=== PATIENT | male | born 1955 | race Caucasian/White ===

== ENCOUNTER → 2017-06-26 | Outpatient (CLI) | payer BC ==
--- NOTE | 2017-06-26 09:11 | CT ---
EXAMINATION TYPE: CT abdomen pelvis w con DATE OF EXAM: 06/26/2017 COMPARISON: 03/27/2016 HISTORY: LLQ mass, swelling CT DLP: 1505 mGycm Automated exposure control for dose reduction was used. TECHNIQUE: Helical acquisition of images was performed from the lung bases through the pelvis. CONTRAST: Performed with Oral Contrast and with IV Contrast, patient injected with 100 mL of Omnipaque 300. FINDINGS: LUNG BASES: Minimal bibasilar subsegmental dependent atelectasis is present. LIVER/GB: Numerous hepatic cysts are scattered throughout the hepatic parenchyma with the largest in the left hepatic lobe measuring 1.5 cm. Some of these are subcentimeter and too small to accurately c haracterize but also likely represent hepatic cysts. No intrahepatic biliary ductal dilatation is pre sent.. Gallbladder surgically absent with cholecystectomy clips in the gallbladder fossa. PANCREAS: Unremarkable in morphology without ductal dilatation. SPLEEN: Not enlarged with multiple small splenules seen at the anterior-inferior margin of the still[place]amish spleen. ADRENALS: Maintain the adreniform shape without discrete measurable nodule. KIDNEYS: Enhance and excrete symmetrically without hydronephrosis or mass. FREE AIR: No free air is visualized. ADENOPATHY: None visualized REPRODUCTIVE ORGANS: Visualization is obscured by spray artifact from bilateral hip prostheses. URINARY BLADDER: Visualization is partially obscured by spray artifact from hip prostheses. OSSEOUS STRUCTURES: Bilateral hip prostheses create extensive spray artifact and partially obscure v isualization of the pelvis. Multilevel degenerative changes of the thoracolumbar and lumbosacral spin e are present. There is slight retrolisthesis of L5 on S1. BOWEL: There is bowel wall thickening of the sigmoid colon and engorgement of the vasa recta with th e antimesenteric border of the colon approaching and abdominal wall defects of a Spigelian hernia wit h a neck measuring 4 cm. No discrete pericolonic fat stranding is seen. Small fat filled umbilical he rnia is also present measuring 1.2 cm. IMPRESSION: 1. LEFT SPIGELIAN HERNIA WITH AN ABDOMINAL WALL DEFECT OF APPROXIMATELY 4CM AND ABUTTING ANTIMESENTER MICHAEL BOARDER OF THE SIGMOID COLON. 2. DIFFUSE COLONIC BOWEL WALL THICKENING AND NUMEROUS SIGMOID DIVERTICULA WELL VASA RECTA ENGOR GEMENT THAT COULD RELATE TO EARLY/RESOLVING DIVERTICULITIS. COLONOSCOPY IS ALSO RECOMMENDED IF NOT RE CENTLY PERFORMED GIVEN THE DIFFUSE COLONIC WALL THICKENING ALTHOUGH THIS COULD BE SEQUELA OF CHRONIC DIVERTICULITIS. 3. NUMEROUS HEPATIC CYSTS AND LESIONS THAT ARE TOO SMALL TO ACCURATELY CHARACTERIZE BUT MAY ALSO REPR ESENT HEPATIC CYSTS.
== END | disposition home or self-care (01) ==
LOC: RADCTMAIN 06:42
PROVIDERS: ATTEND Surgery
DX: K57.30 Diverticulosis of large intestine without perforation or abscess without bleeding (principal); K46.9 Unspecified abdominal hernia without obstruction or gangrene; K76.89 Other specified diseases of liver
CPT/HCPCS: 74177; Q9967

== ENCOUNTER 2017-08-01 07:49 | Day surgery (SDC) | payer BC ==
[2017-07-31 09:31] VITALS: BMI 32.8
[~2017-08-01 07:49] MED LIST: LACTATED RINGERS 1,000 ML IV SCH
[2017-08-01 08:26] VITALS: RESP 16
[2017-08-01] MEDS ORDERED: GLUCAGON 1 MG/ML VIAL ONE (09:10)
[2017-08-01] MEDS ORDERED: PROPOFOL 10 MG/ML 20 ML VIAL IV ONE (09:10)
[2017-08-01] MEDS ORDERED: LIDOCAINE 1% INJ 10MG/ML (20 ML MDV) ONE (09:10)
--- NOTE | 2017-08-01 09:47 | P.DS ---
Providers Attending physician: Phyllis Waters Primary care physician: Natasha Alvarez Plan - Discharge Summary New Discharge Prescriptions: No Action Chlorthalidone [Hygroton] 25 mg PO DAILY Bisoprolol-Hctz 10-6.25 mg [Ziac 10-6.25] 1 each PO DAILY Discharge Medication List Bisoprolol-Hctz 10-6.25 mg [Ziac 10-6.25] 1 each PO DAILY 03/27/16 [History] Chlorthalidone [Hygroton] 25 mg PO DAILY 03/27/16 [History] Activity/Diet/Wound Care/Special Instructions: Diverticular diet Discharge Disposition: HOME SELF-CARE
--- NOTE | 2017-08-01 09:47 | P.OP ---
Date of Procedure: 08/01/17 Preoperative Diagnosis: Prior cecal polyp, diverticuli Postoperative Diagnosis: same, polyp at 35 cm removed with snare polypectomy and retrieved, internal hemorrhoids, spastic bowel Procedure(s) Performed: Colonoscopy Anesthesia: MAC Surgeon: Phyllis Waters Estimated Blood Loss (ml): 0 IV fluids (ml): 550 Pathology: other (Polyp at 35 cm removed with snare polypectomy and retrieved) Condition: stable Disposition: PACU Indications for Procedure: Prior cecal polyp Operative Findings: Spastic bowel, diverticuli, polyp at 35 cm removed with snare polypectomy and retrieved, internal hemorrhoids Description of Procedure: Patient is a 62-year-old white male status post prior colonoscopy with removal of an adenomatous cecal polyp. Patient presents for repeat colonoscopy. Patient came to the endoscopy suite and was placed in the left lateral decubitus position. Rectal examination was performed. Patient was noted to have adequate sphincter tone no masses. Colonoscope was passed through the anus into the rectum. Was passed through the sigmoid colon up to the splenic flexure. The bowel was somewhat spastic and the patient was given glucagon during this portion of the procedure. The scope was advanced through the transverse colon right colon to the area of the cecum. Circumdential observation mucosa did not reveal any lesions of concern in the cecum or right colon. No lesions of concern in the transverse colon. As the scope was brought down to the left and sigmoid colon extensive diverticuli were identified. At 35 cm a polyp was identified which was removed with snare polypectomy and retrieved. The scope continued to be brought down the lesions of concern otherwise noted scope was brought to the rectum where it was retroflexed internal hemorrhoids identified. Proximally 6 minutes were taken to withdraw the scope from the cecum to the rectum. Impression/plan: 1. Extensive diverticuli 2. Spastic bowel 3. Polyp at 35 cm removed with snare polypectomy and retrieved please note no polyp was noted in the cecum 4. Internal hemorrhoids Plan: 1. Conservative management of diverticuli and hemorrhoids 2. Await results of polypectomy most likely repeat scope in 3 years
[2017-08-01 10:04] VITALS: BP 124/77; PULSE 67
== END 2017-08-01 10:23 | disposition home or self-care (01) ==
LOC: ORWHC2ENDO 07:49
PROVIDERS: ATTEND Surgery
DX: Z12.11 Encounter for screening for malignant neoplasm of colon (principal); D12.5 Benign neoplasm of sigmoid colon; K58.9 Irritable bowel syndrome, unspecified; K57.30 Diverticulosis of large intestine without perforation or abscess without bleeding; K64.8 Other hemorrhoids; Z86.010 Personal history of colon polyps; K46.9 Unspecified abdominal hernia without obstruction or gangrene; I25.2 Old myocardial infarction; Z79.899 Other long term (current) drug therapy
CPT/HCPCS: 45385; 88305

== ENCOUNTER → 2017-09-22 | Outpatient (CLI) | payer BC ==
--- NOTE | 2017-09-22 09:35 | CT ---
EXAMINATION TYPE: CT abdomen pelvis w con DATE OF EXAM: 09/22/2017 COMPARISON: Prior CT abdomen pelvis 06/26/2017 HISTORY: Diverticulitis CT DLP: 1472.8 mGycm Automated exposure control for dose reduction was used. TECHNIQUE: Helical acquisition of images from the lung bases through the pelvis have been completed. CONTRAST: Performed with Oral Contrast and with IV Contrast, patient injected with 100 mL of Omnipaque 300. FINDINGS: Artifact due to patient's hip prosthetics limits evaluation of the pelvis LUNG BASES: No significant abnormality is appreciated. AORTA: No significant abnormality is appreciated. LIVER/GB: Cystic foci again noted within the liver as on prior exam, gallbladder is absent. PANCREAS: No significant abnormality is seen. SPLEEN: No significant abnormality is seen. ADRENALS: No significant abnormality is seen. KIDNEYS: No significant abnormality is seen. REPRODUCTIVE ORGANS: No significant abnormality is seen BOWEL: Extensive diverticular changes again noted in the sigmoid colon, no evident bowel obstruction . The appendix is somewhat dilated and shows some luminal contrast centrally, there is no inflammator y change, the size is similar to prior exam FREE AIR: No Free Air visible. ASCITES: None visible. PELVIC ADENOPATHY: None visualized. RETROPERITONEAL ADENOPATHY: No Retroperitoneal Adenopathy visible. URINARY BLADDER: No significant abnormality is seen. OSSEOUS STRUCTURES: No significant abnormality is seen. Some increased attenuation present in the subcutaneous fat over the previously identified hernia like ly due to postop change. IMPRESSION: INTERVAL SURGERY. DIVERTICULOSIS. SOME LIMITATIONS DESCRIBED.
== END | disposition home or self-care (01) ==
LOC: RADCTMAIN 07:41
PROVIDERS: ATTEND Surgery
DX: K57.30 Diverticulosis of large intestine without perforation or abscess without bleeding (principal); Z98.890 Other specified postprocedural states
CPT/HCPCS: 74177; Q9967

== ENCOUNTER 2018-10-22 08:22 | Emergency (ER) | payer BC ==
[2018-10-22 08:31] VITALS: RESP 18
--- NOTE | 2018-10-22 09:11 | ED ---
Fall HPI - General Chief Complaint: Fall Stated Complaint: fall, rt leg injury Time Seen by Provider: 10/22/18 08:36 Source: patient, RN notes reviewed, old records reviewed Mode of arrival: wheelchair - History of Present Illness Initial Comments: Patient is a 63-year-old male presents emergency with left posterior thigh pain and pelvis pain after slip and fall on the ice last night. Patient reports that he landed onto his buttocks and back. He had no loss conscious. He denies headache. He states that he has had no saddle anesthesias. Patient ports and had bilateral hip surgeries. Patient states that he had a right hip replacement. Patient presents had ambulate with a cane. He denies any peripheral paresthesias distally. Denies any pain while sitting in bed. Pain is worse with hip extension. - Related Data Home Medications Medication Instructions Recorded Confirmed Bisoprolol-Hctz 10-6.25 mg [Ziac 1 tab PO QAM 03/27/16 10/22/18 10-6.25] Chlorthalidone [Hygroton] 25 mg PO DAILY 03/27/16 10/22/18 Previous Rx's Medication Instructions Recorded Cyclobenzaprine [Flexeril] 10 mg PO TID #10 tab 10/22/18 Ibuprofen 600 mg PO TID #20 tablet 10/22/18 Allergies Allergy/AdvReac Type Severity Reaction Status Date / Time No Known Allergies Allergy Verified 10/22/18 08:43 Review of Systems ROS Statement: Those systems with pertinent positive or pertinent negative responses have been documented in the HPI. ROS Other: All systems not noted in ROS Statement are negative. Past Medical History Past Medical History: Hypertension Additional Past Medical History / Comment(s): diverticulitis, History of Any Multi-Drug Resistant Organisms: None Reported Past Surgical History: Cholecystectomy, Hernia Repair, Orthopedic Surgery Additional Past Surgical History / Comment(s): R hip replacement, colonoscopy. L hip replacement Past Anesthesia/Blood Transfusion Reactions: No Reported Reaction Past Psychological History: No Psychological Hx Reported Smoking Status: Never smoker Past Alcohol Use History: Rare Past Drug Use History: None Reported - Past Family History Mother Family Medical History: Cancer Additional Family Medical History / Comment(s): Breast Brother(s) Family Medical History: Diabetes Mellitus General Exam - General Exam Comments Initial Comments: 63-year-old male. Alert and oriented. No significant distress. Limitations: no limitations General appearance: alert, in no apparent distress Head exam: Present: atraumatic, normocephalic, normal inspection Eye exam: Present: normal appearance ENT exam: Present: normal exam, mucous membranes moist Neck exam: Present: normal inspection. Absent: tenderness, meningismus, lymphadenopathy Respiratory exam: Present: normal lung sounds bilaterally. Absent: respiratory distress, wheezes, rales, rhonchi, stridor Cardiovascular Exam: Present: regular rate, normal rhythm, normal heart sounds. Absent: systolic murmur, diastolic murmur, rubs, gallop, clicks GI/Abdominal exam: Present: soft, normal bowel sounds. Absent: distended, tenderness, guarding, rebound, rigid Extremities exam: Present: normal inspection, full ROM, normal capillary refill , other (Tenderness palpation over the right hamstring. Tendon is intact. Full range motion of the hip noted. No deformities noted. No bruising.). Absent: tenderness, pedal edema, joint swelling, calf tenderness Back exam: Present: normal inspection Neurological exam: Present: alert, oriented X3, CN II-XII intact Psychiatric exam: Present: normal affect, normal mood Skin exam: Present: warm, dry, intact, normal color. Absent: rash Course Vital Signs 10/22/18 10/22/18 08:24 09:54 Temperature 98.4 F 98.9 F Pulse Rate 68 63 Respiratory 18 18 Rate Blood Pressure 125/76 117/80 O2 Sat by Pulse 94 L 96 Oximetry Medical Decision Making - Medical Decision Making Patient 63-year-old male presents resources today after fall. Patient slipped on ice. Patient can planes of right posterior thigh pain. At this time she he has full range of motion of the leg. He is able to bear weight and ambulate. He has pain with extension of the hip. Pelvis x-ray was completed and is intact. No changes within patient's hardware from previous orthopedic surgeries on hips. Patient's femurs negative for any acute changes as well. Patient's offered pain medication here he stated he did not want anything. I discussed this time likely a pulled hamstring muscle this time. Patient has been advised to stop inflammatory medicine warm compresses over the area. Discussed following up with orthopedic if symptoms persist. All questions answered return parameters were discussed. - Radiology Data Radiology results: report reviewed Negative pelvis exam. Negative right femur exam. Disposition Clinical Impression: Hamstring muscle strain Disposition: HOME SELF-CARE Condition: Good Instructions (If sedation given, give patient instructions): Hamstring Injury ( ED), Hamstring Exercises (ED) Additional Instructions: Advised to alternate heat and ice over the posterior thigh. Take anti- inflammatory medication such as Motrin or Tylenol for pain. Patient should follow-up with orthopedic if symptoms continue to persist after a few days. Patient should practice stretching the hamstring as well. Prescriptions: Cyclobenzaprine [Flexeril] 10 mg PO TID #10 tab Ibuprofen 600 mg PO TID #20 tablet Is patient prescribed a controlled substance at d/c from ED?: No Referrals: Trace Nicole MD [Primary Care Provider] - 1-2 days Bird Weston DO [Doctor of Osteopathic Medicine] - 1-2 days Time of Disposition: 10:23
--- NOTE | 2018-10-22 09:41 | XR ---
EXAMINATION TYPE: XR pelvis AP view DATE OF EXAM: 10/22/2018 CLINICAL HISTORY: pain TECHNIQUE: Single view the pelvis is submitted. FINDINGS: No evidence for fracture, dislocation or bony lesion. Bilateral hip prostheses noted. No e vidence for loosening at this time. SI joints appear symmetric. IMPRESSION: 1. No acute fracture or dislocation seen. ICD 10 NO FRACTURE, INITIAL EVALUATION
--- NOTE | 2018-10-22 09:46 | XR ---
EXAMINATION TYPE: XR femur RT DATE OF EXAM: 10/22/2018 CLINICAL HISTORY: pain TECHNIQUE: Two views of the right femur are obtained. COMPARISON: None. FINDINGS: There is no acute fracture or dislocation seen of the femur. Right femoral acetabular prosthesis. Th e overlying soft tissue appears unremarkable. IMPRESSION: There is no acute fracture or dislocation seen of the femur. ICD 10 NO FRACTURE, INITIAL EVALUATION
[2018-10-22 09:55] VITALS: BP 117/80; PULSE 63; TEMP 98.9
== END 2018-10-22 10:31 | disposition home or self-care (01) ==
LOC: EC 08:22
DX: S76.311A Strain of muscle, fascia and tendon of the posterior muscle group at thigh level, right thigh, initial encounter (principal); I10 Essential (primary) hypertension; Z79.899 Other long term (current) drug therapy; Z96.643 Presence of artificial hip joint, bilateral; W00.0XXA Fall on same level due to ice and snow, initial encounter; Y93.01 Activity, walking, marching and hiking; Y92.096 Garden or yard of other non-institutional residence as the place of occurrence of the external cause
CPT/HCPCS: 72170; 99284

== ENCOUNTER 2019-09-13 07:30 | Day surgery (SDC) | payer BC, MEDICARE ==
[2019-09-09 12:10] VITALS: BMI 30.7
--- NOTE | 2019-09-12 21:53 | P.GSHP ---
History of Present Illness H&P Date: 09/13/19 CHIEF COMPLAINT: Colon screen HISTORY OF PRESENT ILLNESS: The patient is a 64-year-old male who presents for colon screen. Lower endoscopy was offered for further evaluation and management. PAST MEDICAL HISTORY: Please see list. PAST SURGICAL HISTORY: Please see list. MEDICATIONS: Please see list. ALLERGIES: Please see list. SOCIAL HISTORY: No illicit drug use FAMILY HISTORY: No reports of Crohn disease or ulcerative colitis. REVIEW OF ORGAN SYSTEMS: CONSTITUTIONAL: No reports of fevers or chills. PHYSICAL EXAM: VITAL SIGNS: Stable GENERAL: Well-developed pleasant in no acute distress. HEENT: No scleral icterus. Extraocular movements grossly intact. Moist buccal mucosa. NECK: Supple without lymphadenopathy. CHEST: Unlabored respirations. Equal bilateral excursions. CARDIOVASCULAR: Regular rate and rhythm. Distal 2+ pulses. ABDOMEN: Soft, nontender, nondistended. MUSCULOSKELETAL: No clubbing, cyanosis, or edema. ASSESSMENT: 1. Colon screen. PLAN: 1. Recommend proceeding with a lower endoscopy Past Medical History Past Medical History: Hypertension Additional Past Medical History / Comment(s): diverticulitis, hernia History of Any Multi-Drug Resistant Organisms: None Reported Past Surgical History: Cholecystectomy, Hernia Repair, Orthopedic Surgery Additional Past Surgical History / Comment(s): olimpia hip replacement, colonoscopy. Past Anesthesia/Blood Transfusion Reactions: No Reported Reaction Smoking Status: Never smoker - Past Family History Mother Family Medical History: Cancer Additional Family Medical History / Comment(s): Breast Brother(s) Family Medical History: Diabetes Mellitus Medications and Allergies Home Medications Medication Instructions Recorded Confirmed Type Bisoprolol-Hctz 10-6.25 mg [Ziac 1 tab PO QAM 03/27/16 09/09/19 History 10-6.25] Chlorthalidone [Hygroton] 25 mg PO DAILY 03/27/16 09/09/19 History Allergies Allergy/AdvReac Type Severity Reaction Status Date / Time No Known Allergies Allergy Verified 10/22/18 08:43
[~2019-09-13 07:30] MED LIST changes: +LIDOCAINE 1% 20 ML VIAL (10MG/ML) FOR IV START INTRADERMA PRN
[2019-09-13] MEDS ORDERED: LACTATED RINGERS 1,000 ML IV ONE (07:45)
[2019-09-13 08:01] VITALS: TEMP 98.6
[2019-09-13] MEDS ORDERED: PROPOFOL 10 MG/ML 20 ML VIAL IV ONE (08:24)
--- NOTE | 2019-09-13 09:17 | P.PCN ---
Date of Procedure: 09/13/19 Description of Procedure: PREOPERATIVE DIAGNOSIS: Personal history of colon polyps Family history malignant colon polyps Colonoscopy screening POSTOPERATIVE DIAGNOSIS: Personal history of colon polyps Family history malignant colon polyps Colonoscopy screening Tubular adenoma hepatic flexure Tubular adenoma transverse colon Sigmoid diverticulosis Internal hemorrhoids, grade 2 OPERATION: Colonoscopy to the ileocecal valve and appendiceal orifice. Colonoscopy with multiple hot snare polypectomies Colonoscopy with cold forceps biopsies SURGEON: Kristen Arias MD. ANESTHESIA: MAC. INDICATIONS: The patient is an 64-year-old male who presents family history of malignant colon polyps and personal history of colon polyps. Last colonoscopy 5 years. Benefits and risks were described and informed consent was obtained. DESCRIPTION OF PROCEDURE: The patient had undergone Suprep. He had been brought into the operating room and laid in the left lateral decubitus position. After adequate intravenous sedation, the rectum was examined with 2% lidocaine jelly. The prostate was unremarkable. External hemorrhoids were encountered. The rectal tone was within normal limits. No lesions were palpated in the rectal vault. An Olympus colonoscope was advanced until the ileocecal valve and appendiceal orifice were clearly viewed. The prep was fair. Sigmoid diverticulosis was encountered. Multiple colonic polyps were found and snare polypectomy. No evidence of focal colitis was found. Retroflexion of the scope demonstrated grade 2 internal hemorrhoids without active bleeding or inflammation. The colon was desufflated. The patient had tolerated the procedure well. Withdrawal time was over 6 minutes. FINDINGS: Aronchick preparation quality scale 2 (1-5) Internal hemorrhoids, grade 2 External hemorrhoids, grade 2. No arteriovenous malformations. Sigmoid diverticulosis Removal of 4 polyps from the proximal, mid transverse colon and descending colon: - Snare polypectomy hepatic flexure, 8 mm tubulovillous adenoma polyp. - Cold forceps biopsy at distal transverse colon, 4 mm polyp. - Cold forceps biopsy at mid transverse colon, 5 mm polyp. - Cold forceps biopsy at proximal transverse colon, 4 mm polyp. No focal colitis. RECOMMENDATIONS: Given severity of tubular adenomas, recommend repeat colonoscopy 2 years, 2019. Plan - Discharge Summary Discharge Rx Participant: No New Discharge Prescriptions: No Action Chlorthalidone [Hygroton] 25 mg PO DAILY Bisoprolol-Hctz 10-6.25 mg [Ziac 10-6.25] 1 tab PO QAM Discharge Medication List Bisoprolol-Hctz 10-6.25 mg [Ziac 10-6.25] 1 tab PO QAM 03/27/16 [History] Chlorthalidone [Hygroton] 25 mg PO DAILY 03/27/16 [History] Follow up Appointment(s)/Referral(s): Kristen Arias MD [STAFF PHYSICIAN] - As Needed Patient Instructions/Handouts: Colorectal Polyps (DC), Diverticulosis (DC), Diverticulosis Diet (GEN) Activity/Diet/Wound Care/Special Instructions: Repeat colonoscopy in 2 years, 2021 Discharge Disposition: HOME SELF-CARE
[2019-09-13 09:29] VITALS: BP 126/90; PULSE 66; RESP 18
== END 2019-09-13 09:46 | disposition home or self-care (01) ==
LOC: ORWHC2ENDO 07:30
PROVIDERS: ATTEND Surgery Plastic and Reconstructive Surgery
DX: Z12.11 Encounter for screening for malignant neoplasm of colon (principal); D12.3 Benign neoplasm of transverse colon; K63.5 Polyp of colon; K57.30 Diverticulosis of large intestine without perforation or abscess without bleeding; K64.1 Second degree hemorrhoids; K64.4 Residual hemorrhoidal skin tags; Z86.010 Personal history of colon polyps; Z83.71 Family history of colonic polyps; I10 Essential (primary) hypertension; E66.9 Obesity, unspecified; Z87.19 Personal history of other diseases of the digestive system; Z90.49 Acquired absence of other specified parts of digestive tract; Z96.643 Presence of artificial hip joint, bilateral; Z79.899 Other long term (current) drug therapy; Z68.30 Body mass index [BMI] 30.0-30.9, adult; Z80.3 Family history of malignant neoplasm of breast; Z83.3 Family history of diabetes mellitus
CPT/HCPCS: 88305; 45380; 45385; J2704

== ENCOUNTER 2019-10-17 06:02 | Day surgery (SDC) | payer MEDICARE, BC ==
[2019-10-15 13:31] VITALS: BMI 30.7
[~2019-10-17 06:02] MED LIST changes: +DEXAMETHASONE SOD PHOSPHATE 10 MG/ML 1 ML VIAL IV ONE; +HEPARIN SODIUM,PORCINE 5,000 UNIT/ML 1 ML VIAL SQ ONE; +HYDROmorphone 0.5 MG/0.5 ML SYRINGE IVP PRN; +ONDANSETRON 4 MG/2 ML VIAL IVP ONE; +SCOPOLAMINE 1.5MG/72HR PATCH TRANSDERM ONE
[2019-10-17] MEDS ORDERED: MIDAZOLAM 2 MG/2 ML VIAL IV ONE (07:07)
[2019-10-17] MEDS ORDERED: GABAPENTIN 300 MG CAP PO STA (07:07)
[2019-10-17] MEDS ORDERED: TAMSULOSIN 0.4 MG CAP.ER.24H PO STA (07:07)
[2019-10-17] MEDS ORDERED: ACETAMINOPHEN TAB 500 MG TAB PO STA (07:07)
--- NOTE | 2019-10-17 07:07 | P.GSHP ---
History of Present Illness H&P Date: 10/17/19 CHIEF COMPLAINT: Ventral hernia HISTORY OF PRESENT ILLNESS: The patient is a 64-year-old male who presents with a history of swelling and pain along the abdomen from a hernia. Now he presents for surgical intervention. PAST MEDICAL HISTORY: Please see list. PAST SURGICAL HISTORY: Please see list. MEDICATIONS: Please see list. ALLERGIES: Please see list. SOCIAL HISTORY: No illicit drug use FAMILY HISTORY: No reports of Crohn disease or ulcerative colitis. REVIEW OF ORGAN SYSTEMS: CONSTITUTIONAL: No reports of fevers or chills. No reports of weight loss despite prior attempts. GI: Denies any blood in stools or constipation. PHYSICAL EXAM: VITAL SIGNS: Stable GENERAL: Well-developed pleasant male in no acute distress. HEENT: No scleral icterus. Extraocular movements grossly intact. Moist buccal mucosa. NECK: Supple without lymphadenopathy. CHEST: Unlabored respirations. Equal bilateral excursions. CARDIOVASCULAR: Regular rate and rhythm. Distal 2+ pulses. ABDOMEN: Soft, nondistended. Palpable defect of the abdomen. No peritoneal signs. MUSCULOSKELETAL: No clubbing, cyanosis, or edema. ASSESSMENT: 1. Ventral hernia PLAN: 1. Recommend proceeding with robotic ventral hernia repair with mesh. 2. Benefits and risks of surgical intervention was discussed including possibility of open technique. 3. DVT prophylaxis. 4. Antibiotic prophylaxis. Past Medical History Past Medical History: Hypertension Additional Past Medical History / Comment(s): diverticulitis, History of Any Multi-Drug Resistant Organisms: None Reported Past Surgical History: Cholecystectomy, Hernia Repair, Orthopedic Surgery Additional Past Surgical History / Comment(s): R hip replacement, colonoscopy. L hip replacement Past Anesthesia/Blood Transfusion Reactions: No Reported Reaction Smoking Status: Never smoker - Past Family History Mother Family Medical History: Cancer Additional Family Medical History / Comment(s): Breast Brother(s) Family Medical History: Diabetes Mellitus Medications and Allergies Home Medications Medication Instructions Recorded Confirmed Type Bisoprolol-Hctz 10-6.25 mg [Ziac 1 tab PO QAM 03/27/16 10/15/19 History 10-6.25] Chlorthalidone [Hygroton] 25 mg PO DAILY 03/27/16 10/15/19 History Potassium Chloride ER [K-Dur 10] 10 meq PO DAILY 10/15/19 10/15/19 History Allergies Allergy/AdvReac Type Severity Reaction Status Date / Time No Known Allergies Allergy Verified 10/17/19 06:27 Surgical - Exam Vital Signs Temp Pulse Resp BP Pulse Ox 97 F L 62 16 131/83 97 10/17/19 06:24 10/17/19 06:24 10/17/19 06:24 10/17/19 06:24 10/17/19 06:24
[2019-10-17] MEDS ORDERED: fentaNYL (PF) 50 MCG/ML 2 ML AMP IV ONE (07:08)
[2019-10-17] MEDS ORDERED: LIDOCAINE 1% INJ 10MG/ML (20 ML MDV) ONE (07:24)
[2019-10-17] MEDS ORDERED: SUCCINYLCHOLINE CHLORIDE 100 MG/5 ML SYR IV ONE (07:24)
[2019-10-17] MEDS ORDERED: DEXAMETHASONE SOD PHOSPHATE 4 MG/ML 1 ML VIAL ONE (07:24)
[2019-10-17] MEDS ORDERED: GLYCOPYRROLATE 0.2 MG/ML 2 ML VIAL ONE (07:24)
[2019-10-17] MEDS ORDERED: PROPOFOL 10 MG/ML 20 ML VIAL IV ONE (07:24)
[2019-10-17] MEDS ORDERED: NEOSTIGMINE 1 MG/ML 10 ML VIAL ONE (07:24)
[2019-10-17] MEDS ORDERED: diphenhydrAMINE 50 MG/ML 1 ML VIAL ONE (07:24)
[2019-10-17] MEDS ORDERED: ROPIVACAINE 5 MG/ML 30 ML VIAL ONE (07:24)
[2019-10-17] MEDS ORDERED: fentaNYL (PF) 50 MCG/ML 2 ML AMP ONE (07:24)
[2019-10-17] MEDS ORDERED: ROCURONIUM BROMIDE 10 MG/ML 10 ML VIAL IV ONE (07:24)
--- NOTE | 2019-10-17 07:26 | P.ANPRN ---
Procedure Note - Anesthesia - Nerve Block Performed Bilateral Rectus Abdominis Single Time Out Performed: Yes Date of Procedure: 10/17/19 Procedure Start Time: :07 Procedure Stop Time: 07:15 Location of Patient: PreOp Indication: Acute Post-Operative Pain, Requested by Surgeon Specifically requested for management of pain by DrKong: Kristen Arias Sedation Type: Sedate with meaningful contact maintained Preparation: Sterile Prep Position: Supine Needle Types: Pajunk Needle Gauge: 21 Ultrasound used to visualize needle placement: Yes Ultrasound used to observe medication spread: Yes Injectate: 0.5% Ropivacaine (see comment for volume) Blood Aspirated: No Pain Paresthesia on Injection Noted: No Resistance on Injection: Normal Image Stored and Saved: Yes Events: Uneventful and Well Tolerated (0.5% ropivicaine 30cc dexamethsone 4mg)
[2019-10-17] MEDS ORDERED: BUPIVACAINE (PF) 0.25% 30 ML VIAL SQ ONE (07:55)
[2019-10-17] MEDS ORDERED: LACTATED RINGERS 1,000 ML IV ONE (08:10)
[2019-10-17 08:58] VITALS: TEMP 96.8
[2019-10-17 09:00] VITALS: RESP 16
[2019-10-17] MEDS ORDERED: diphenhydrAMINE 50 MG/ML 1 ML VIAL IVP ONE (10:00)
[2019-10-17] MEDS ORDERED: DEXAMETHASONE SOD PHOSPHATE 10 MG/ML 1 ML VIAL IV ONE (10:00)
--- NOTE | 2019-10-17 10:02 | P.OP ---
Date of Procedure: 10/17/19 Description of Procedure: SURGEON: KRISTEN ARIAS MD PREOPERATIVE DIAGNOSES: 1. Initial incisional hernia, epigastrium 2. Personal history of multiple abdominal wall hernias 3. Hypertensive heart disease 4. Obesity due to excess calories, BMI 31.0 POSTOPERATIVE DIAGNOSES: 1. Initial incisional hernia, epigastrium 2. Personal history of multiple abdominal wall hernias 3. Hypertensive heart disease 4. Obesity due to excess calories, BMI 31.0 OPERATION: 1. Robotic-assisted da Carlos Xi laparoscopic repair of initial incarcerated epigastric ventral hernia with mesh, ventralight ST mesh 11.4 cm Anesthesia: GETA, regional, local Estimated Blood Loss (ml): 5 Pathology: None COMPLICATIONS: None. Operative Findings: 1. Upper midline epigastric ventral hernia defect 2 x 3 cm 2. Left lower quadrant subgaleal hernia 3. Fascia repaired using #1 V-lock suture INDICATIONS: The patient is a 64-year-old male who presents with a personal history of multiple abdominal wall hernias. Surgical intervention with laparoscopic versus robotic and open techniques were reviewed. Placement of mesh was also reviewed. Benefits and risks were thoroughly described. Informed consent was obtained. DESCRIPTION OF PROCEDURE: The patient was brought into the operating room and laid in supine position. After general induction, the abdomen had been prepped and draped in standard sterile fashion. Ioban draping was also placed. Prior to incision, a timeout protocol was confirmed with surgical team regarding the patient's name including procedures to be performed. The robot was primed prior to the procedure. A field block using local anesthetic was placed along hernia site including the proposed port sites. Initial incision was made with an #11 blade along the left upper quadrant. A 0 degree 5 mm laparoscopic trocar entry was performed and insufflated. Three 8 mm ports were placed along the right lateral abdominal wall under direct localization after exchanging the 5-mm for an 8 mm port. Placements of the ports were 15 cm from the target anatomy and 10 cm apart. An accessory 12 mm port was placed at the left upper quadrant for exchange of mesh including sutures. The [employer] robot was previously primed, prepped and draped then docked from the right side of the patient onto the left side of the patient. I then sat at the robot Nixlei Xi console where working arms of the robot including Bovie cautery connected to robotic scissors, needle hydraulic lift driver, and graspers placed by the assistant director of financial aid. Incarcerated omental contents were found along the upper midline defect. The defects were reduced at the upper midline defect. Two distinct fascial defects were found: Upper midline defect 2 x 3 cm and left lower abdominal wall hernia defect 2 x 3 cm, previously repaired. The incarcerated contents were reduced as the peritoneal fat was cleaned from the abdominal wall. Next, hemostasis was checked with cautery. The epigastric hernia defect was oversewn using #1 nonabsorbable V-lock suture with fascial imbrication x 2. Next, ventralight ST mesh 11.4 cm was placed with the rough side towards the abdominal wall. 2-0 VLOC 9 inch sutures were used to fixate the mesh. A final endoscopic imaging was obtained. All instruments and pneumoperitoneum were evacuated from the abdominal cavity. The da Carlos Xi robot was undocked from the patient. I re-scrubbed into the case for closure of incisions. The fascia of the 12-mm port was probed and less than 8-mm in size. The incisions were reapproximated using 4-0 Monocryl in an interrupted subcuticular fashion. Liquid glue was applied to the skin after cleansing the skin with normal saline and dilute hydrogen peroxide. An abdominal binder was placed. An umbilical dressing was placed prior. At the end of the procedure, needle, sponge, and instrument count had been verified correct by surgical scrub technician. The patient was taken to the postanesthesia care unit in stable condition. Plan - Discharge Summary Discharge Rx Participant: No New Discharge Prescriptions: New Ibuprofen 800 mg PO Q8HR PRN #30 tablet PRN Reason: Pain Acetaminophen Tab [Tylenol Tab] 1,000 mg PO Q6HR PRN #30 tablet PRN Reason: Pain Tamsulosin [Flomax] 0.4 mg PO DAILY #5 cap.er.24h Continue Chlorthalidone [Hygroton] 25 mg PO DAILY Bisoprolol-Hctz 10-6.25 mg [Ziac 10-6.25 MG] 1 tab PO QAM Potassium Chloride ER [K-Dur 10] 10 meq PO DAILY Discharge Medication List Bisoprolol-Hctz 10-6.25 mg [Ziac 10-6.25 MG] 1 tab PO QAM 03/27/16 [History] Chlorthalidone [Hygroton] 25 mg PO DAILY 03/27/16 [History] Potassium Chloride ER [K-Dur 10] 10 meq PO DAILY 10/15/19 [History] Acetaminophen Tab [Tylenol Tab] 1,000 mg PO Q6HR PRN #30 tablet 10/17/19 [Rx] Ibuprofen 800 mg PO Q8HR PRN #30 tablet 10/17/19 [Rx] Tamsulosin [Flomax] 0.4 mg PO DAILY #5 cap.er.24h 10/17/19 [Rx] Follow up Appointment(s)/Referral(s): Kristen Arias MD [STAFF PHYSICIAN] - 10/22/19 (YOU WILL NEED TO CALL TO SCHEDULE YOUR APPOINTMENT) Patient Instructions/Handouts: *Surgery [facility] - (Anesthesia) Discharge Instructions Outpatient Surgery, Abdominal Binder (ED), Ventral Hernia Repair (GEN) Activity/Diet/Wound Care/Special Instructions: Wear abdominal binder at all times No lifting over 4 pounds in 4 weeks until Nov 14. January shower. No bath tub soaks for two weeks until Oct 31. Diet as tolerated. No driving while on narcotics. Use Tylenol and ibuprofen scheduled for the next 24-48 hours for best pain relief. Use ice along incisions for the today to prevent swelling. Discharge Disposition: HOME SELF-CARE
[2019-10-17 10:29] VITALS: BP 124/75; PULSE 69
== END 2019-10-17 11:11 | disposition home or self-care (01) ==
LOC: OR 06:02
PROVIDERS: ATTEND Surgery Plastic and Reconstructive Surgery
DX: K43.0 Incisional hernia with obstruction, without gangrene (principal); I11.9 Hypertensive heart disease without heart failure; E66.09 Other obesity due to excess calories; E78.5 Hyperlipidemia, unspecified; Z68.31 Body mass index [BMI] 31.0-31.9, adult; Z98.890 Other specified postprocedural states; Z79.899 Other long term (current) drug therapy; Z90.49 Acquired absence of other specified parts of digestive tract; Z87.19 Personal history of other diseases of the digestive system; Z96.643 Presence of artificial hip joint, bilateral; Z80.3 Family history of malignant neoplasm of breast; Z83.3 Family history of diabetes mellitus
CPT/HCPCS: 64488; 49655; C1781; J2250; J1200; J1644; J1100 ×2; J2710; J0690; J2405; J2001; J3010; J2795; J0330; J2704

== ENCOUNTER 2021-12-01 08:50 | Day surgery (SDC) | payer MEDICARE, BC ==
[2021-11-29 11:14] VITALS: BMI 30.7
[~2021-12-01 08:50] MED LIST changes: -DEXAMETHASONE SOD PHOSPHATE 10 MG/ML 1 ML VIAL IV ONE; -HEPARIN SODIUM,PORCINE 5,000 UNIT/ML 1 ML VIAL SQ ONE; -HYDROmorphone 0.5 MG/0.5 ML SYRINGE IVP PRN; -LACTATED RINGERS 1,000 ML IV SCH; +LIDOCAINE 1% (10MG/ML) FOR IV START INTRADERMA PRN; -LIDOCAINE 1% 20 ML VIAL (10MG/ML) FOR IV START INTRADERMA PRN; -ONDANSETRON 4 MG/2 ML VIAL IVP ONE; -SCOPOLAMINE 1.5MG/72HR PATCH TRANSDERM ONE
--- NOTE | 2021-12-01 09:06 | P.GSHP ---
History of Present Illness H&P Date: 12/01/21 CHIEF COMPLAINT: Colon screen HISTORY OF PRESENT ILLNESS: The patient is a 66-year-old male who presents for colon screen. Lower endoscopy was offered for further evaluation and management. PAST MEDICAL HISTORY: Please see list. PAST SURGICAL HISTORY: Please see list. MEDICATIONS: Please see list. ALLERGIES: Please see list. SOCIAL HISTORY: No illicit drug use FAMILY HISTORY: No reports of Crohn disease or ulcerative colitis. REVIEW OF ORGAN SYSTEMS: CONSTITUTIONAL: No reports of fevers or chills. PHYSICAL EXAM: VITAL SIGNS: Stable GENERAL: Well-developed pleasant in no acute distress. HEENT: No scleral icterus. Extraocular movements grossly intact. Moist buccal mucosa. NECK: Supple without lymphadenopathy. CHEST: Unlabored respirations. Equal bilateral excursions. CARDIOVASCULAR: Regular rate and rhythm. Distal 2+ pulses. ABDOMEN: Soft, nontender, nondistended. MUSCULOSKELETAL: No clubbing, cyanosis, or edema. ASSESSMENT: 1. Colon screen. PLAN: 1. Recommend proceeding with a lower endoscopy Past Medical History Past Medical History: Hypertension, Prostate Disorder Additional Past Medical History / Comment(s): diverticulitis, History of Any Multi-Drug Resistant Organisms: None Reported Past Surgical History: Cholecystectomy, Hernia Repair Additional Past Surgical History / Comment(s): BILAT RAMYA, COLONOSCOPY, HERNIA X 2 Past Anesthesia/Blood Transfusion Reactions: No Reported Reaction Smoking Status: Never smoker - Past Family History Mother Family Medical History: Cancer Additional Family Medical History / Comment(s): Breast Brother(s) Family Medical History: Diabetes Mellitus Medications and Allergies Home Medications Medication Instructions Recorded Confirmed Type Bisoprolol-Hctz 10-6.25 mg [Ziac 1 tab PO QAM 03/27/16 11/29/21 History 10-6.25 MG] Chlorthalidone [Hygroton] 25 mg PO DAILY 03/27/16 11/29/21 History Potassium Chloride ER [K-Dur 10] 10 meq PO BID 10/15/19 11/29/21 History Acetaminophen Tab [Tylenol Tab] 1,000 mg PO Q6HR PRN #30 tablet 10/17/19 11/29/21 Rx Ibuprofen 800 mg PO Q8HR PRN #30 tablet 10/17/19 11/29/21 Rx Multivit-Min/FA/Lycopen/Lutein 1 each PO DAILY 11/29/21 11/29/21 History [Centrum Silver Men Tablet] Tamsulosin [Flomax] 0.2 mg PO DAILY 11/29/21 11/29/21 History Allergies Allergy/AdvReac Type Severity Reaction Status Date / Time No Known Allergies Allergy Verified 11/29/21 11:01
[2021-12-01] MEDS: LACTATED RINGERS 1,000 ML IV SCH ×2 (09:30→10:12)
[2021-12-01] MEDS ORDERED: PROPOFOL 10 MG/ML 20 ML VIAL IV ONE (10:13)
[2021-12-01] MEDS ORDERED: LIDOCAINE 1% INJ 10MG/ML (20 ML MDV) ONE (10:13)
[2021-12-01 10:19] VITALS: TEMP 98.2
[2021-12-01 11:00] VITALS: BP 108/73; PULSE 57; RESP 16
--- NOTE | 2021-12-01 11:29 | P.PCN ---
Date of Procedure: 12/01/21 Description of Procedure: PREOPERATIVE DIAGNOSIS: Personal history of colon polyps POSTOPERATIVE DIAGNOSIS: Tubular adenoma ascending colon Tubular adenoma transverse colon Sigmoid diverticulosis OPERATION: Colonoscopy to the ileocecal valve and appendiceal orifice, cecum Colonoscopy with hot snare polypectomy Colonoscopy with ablation, ascending colon SURGEON: Kristen Arias MD. ANESTHESIA: MAC. INDICATIONS: The patient is an 66-year-old male who presents personal history of colon polyps. Last colonoscopy less than 5 years. Benefits and risks were described and informed consent was obtained. DESCRIPTION OF PROCEDURE: The patient had undergone Sutab prep. The patient had been brought into the operating room and laid in the left lateral decubitus position. After adequate intravenous sedation, the rectum was examined with 2% lidocaine jelly. The prostate was unremarkable. No external hemorrhoids were encountered. The rectal tone was within normal limits. No lesions were palpated in the rectal vault. An Olympus colonoscope was advanced until the cecum, ileocecal valve and marco antnoio endiceal orifice were clearly viewed. The prep was fair. Moderate sigmoid diverticulosis was encountered. Colonic polyps were found and removed. No evidence of focal colitis was found. Retroflexion of the scope demonstrated grade 2 internal hemorrhoids without active bleeding or inflammation. The colon was desufflated. The patient had tolerated the procedure well. Withdrawal time was over 6 minutes. FINDINGS: Aronchick preparation quality scale 3 (1-5) Internal hemorrhoids, grade 1 No external hemorrhoids No arteriovenous malformations. Sigmoid diverticulosis, moderate to severe Removal of 2 polyps: - Snare polypectomy distal transverse colon, 5 mm tubulovillous adenoma polyp. - Snare polypectomy proximal transverse colon, 4 mm tubulovillous adenoma polyp. Ablation of ascending colon adenoma, 3 mm No focal colitis. RECOMMENDATIONS: Repeat colonoscopy in 3 years, 2024 Plan - Discharge Summary Discharge Rx Participant: No New Discharge Prescriptions: Continue Chlorthalidone [Hygroton] 25 mg PO DAILY Bisoprolol-Hctz 10-6.25 mg [Ziac 10-6.25 MG] 1 tab PO QAM Potassium Chloride ER [K-Dur 10] 10 meq PO BID Ibuprofen 800 mg PO Q8HR PRN #30 tablet PRN Reason: Pain Acetaminophen Tab [Tylenol] 1,000 mg PO Q6HR PRN #30 tablet PRN Reason: Pain Multivit-Min/FA/Lycopen/Lutein [Centrum Silver Men Tablet] 1 each PO DAILY Tamsulosin [Flomax] 0.2 mg PO DAILY Discharge Medication List Bisoprolol-Hctz 10-6.25 mg [Ziac 10-6.25 MG] 1 tab PO QAM 03/27/16 [History] Chlorthalidone [Hygroton] 25 mg PO DAILY 03/27/16 [History] Potassium Chloride ER [K-Dur 10] 10 meq PO BID 10/15/19 [History] Acetaminophen Tab [Tylenol] 1,000 mg PO Q6HR PRN #30 tablet 10/17/19 [Rx] Ibuprofen 800 mg PO Q8HR PRN #30 tablet 10/17/19 [Rx] Multivit-Min/FA/Lycopen/Lutein [Centrum Silver Men Tablet] 1 each PO DAILY 11/29/21 [History] Tamsulosin [Flomax] 0.2 mg PO DAILY 11/29/21 [History] Follow up Appointment(s)/Referral(s): Kristen Arias MD [STAFF PHYSICIAN] - As Needed Patient Instructions/Handouts: Diverticulosis Diet (GEN), Diverticulosis (DC), Colorectal Polyps (GEN) Activity/Diet/Wound Care/Special Instructions: Repeat colonoscopy in 3 years, 2024 Discharge Disposition: HOME SELF-CARE
== END 2021-12-01 11:30 | disposition home or self-care (01) ==
LOC: ORWHC2ENDO 08:50
PROVIDERS: ATTEND Surgery Plastic and Reconstructive Surgery
DX: Z12.11 Encounter for screening for malignant neoplasm of colon (principal); D12.3 Benign neoplasm of transverse colon; K57.30 Diverticulosis of large intestine without perforation or abscess without bleeding; K64.1 Second degree hemorrhoids; Z86.010 Personal history of colon polyps; I10 Essential (primary) hypertension; N42.9 Disorder of prostate, unspecified; Z79.899 Other long term (current) drug therapy; Z90.49 Acquired absence of other specified parts of digestive tract; Z98.890 Other specified postprocedural states; Z96.643 Presence of artificial hip joint, bilateral; Z80.3 Family history of malignant neoplasm of breast; Z83.3 Family history of diabetes mellitus
CPT/HCPCS: 88305; 45385; J2001; J2704

== ENCOUNTER 2023-02-10 12:31 | Emergency (ER) | payer MEDICARE, BC ==
[2023-02-10 12:36] VITALS: BP 139/83; PULSE 54; RESP 16; TEMP 97.6
--- NOTE | 2023-02-10 12:45 | ED ---
Dizziness HPI - General Chief Complaint: Dizziness Stated Complaint: Dizziness Time Seen by Provider: 02/10/23 12:40 Source: patient, RN notes reviewed, old records reviewed Mode of arrival: ambulatory Limitations: no limitations - History of Present Illness Initial Comments: This is a 67-year-old male to the emergency department today for evaluation will continue with the room spinning and being off balance. Patient has no history of the same. No current headache. No recent trauma. No fevers. Patient denies any neurological findings or complaints no weakness or lack of strength and inability to move any extremities. Patient does have history of high blood pressure Description: "room spinning", off-balance, difficulty walking History of Same: Yes History of Trauma: Yes Improves With: nothing Worsens With: movement Associated Symptoms: ataxia - Related Data Home Medications Medication Instructions Recorded Confirmed Bisoprolol-Hctz 10-6.25 mg [Ziac 1 tab PO QAM 03/27/16 12/01/21 10-6.25 MG] Chlorthalidone [Hygroton] 25 mg PO DAILY 03/27/16 12/01/21 Potassium Chloride ER [K-Dur 10] 10 meq PO BID 10/15/19 12/01/21 Multivit-Min/FA/Lycopen/Lutein 1 each PO DAILY 11/29/21 12/01/21 [Centrum Silver Men Tablet] Tamsulosin [Flomax] 0.2 mg PO DAILY 11/29/21 12/01/21 Previous Rx's Medication Instructions Recorded Acetaminophen Tab [Tylenol] 1,000 mg PO Q6HR PRN #30 tablet 10/17/19 Ibuprofen 800 mg PO Q8HR PRN #30 tablet 10/17/19 Meclizine [Antivert] 25 mg PO TID #15 tab 02/10/23 Allergies Allergy/AdvReac Type Severity Reaction Status Date / Time No Known Allergies Allergy Verified 02/10/23 12:36 Review of Systems ROS Statement: Those systems with pertinent positive or pertinent negative responses have been documented in the HPI. ROS Other: All systems not noted in ROS Statement are negative. Past Medical History Past Medical History: Hypertension, Prostate Disorder Additional Past Medical History / Comment(s): diverticulitis, History of Any Multi-Drug Resistant Organisms: None Reported Past Surgical History: Cholecystectomy, Hernia Repair, Orthopedic Surgery Additional Past Surgical History / Comment(s): BILAT RAMYA, COLONOSCOPY, HERNIA X 2 Past Anesthesia/Blood Transfusion Reactions: No Reported Reaction Past Psychological History: No Psychological Hx Reported Smoking Status: Never smoker Past Alcohol Use History: None Reported Past Drug Use History: None Reported - Past Family History Mother Family Medical History: Cancer Additional Family Medical History / Comment(s): Breast Brother(s) Family Medical History: Diabetes Mellitus General Exam Limitations: no limitations General appearance: alert, in no apparent distress Head exam: Present: atraumatic, normocephalic, normal inspection Eye exam: Present: normal appearance, PERRL, EOMI. Absent: scleral icterus, conjunctival injection, periorbital swelling ENT exam: Present: normal exam, mucous membranes moist Neck exam: Present: normal inspection. Absent: tenderness, meningismus, lymphadenopathy Respiratory exam: Present: normal lung sounds bilaterally. Absent: respiratory distress, wheezes, rales, rhonchi, stridor Cardiovascular Exam: Present: regular rate, normal rhythm, normal heart sounds. Absent: systolic murmur, diastolic murmur, rubs, gallop, clicks GI/Abdominal exam: Present: soft, normal bowel sounds. Absent: distended, tenderness, guarding, rebound, rigid Extremities exam: Present: normal inspection, full ROM, normal capillary refill. Absent: tenderness, pedal edema, joint swelling, calf tenderness Back exam: Present: normal inspection Neurological exam: Present: alert, oriented X3, CN II-XII intact Psychiatric exam: Present: normal affect, normal mood Skin exam: Present: warm, dry, intact, normal color. Absent: rash Course Vital Signs 02/10/23 12:34 Temperature 97.6 F Pulse Rate 54 L Respiratory 16 Rate Blood Pressure 139/83 O2 Sat by Pulse 96 Oximetry - Reevaluation(s) Reevaluation #1: 02/10/23 21:10 Medical records reviewed Reevaluation #2: 02/10/23 21:10 Patient symptoms mildly improved here in the ER Reevaluation #3: 02/10/23 21:10 Patient informed of results questions answered Reevaluation #4: 02/10/23 21:10 Was pt. sent in by a medical professional or institution? @ -no Did you speak to anyone other than the patient for history? @ -no Did you review nursing and triage notes? @ -agree Were old charts reviewed? @ -no Differential Diagnosis? @ -prior EKG interpreted by me (3pts min.)? @ -yes X-rays interpreted by me (1pt min.)? @ -yes CT interpreted by me (1pt min.)? @ -no U/S interpreted by me (1pt. min.)? @ -no What testing was considered but not performed? (CT, X-rays, U/S, labs)? Why? @ -no What meds were considered but not given? Why? @ -no Did you discuss the management of the patient with other professionals? @ -no Did you reconcile home meds? @ -no Was smoking cessation discussed for >3mins.? @ -no Was critical care preformed (if so, how long)? @ -no Were there social determinants of health that impacted care today? How? (Homelessness, low income, unemployed, alcoholism, drug addiction, transpor tation, low edu. Level, literacy, decrease access to med. care, long term, rehab)? @ -no Was there de-escalation of care discussed even if they declined? (Discuss DNR or withdrawal of care, Hospice)? @ -no What co-morbidities impacted this encounter? (DM, HTN, Smoking, COPD, CAD, Cancer, CVA, Hep., AIDS, mental health diagnosis, sleep apnea, morbid obesity)? @ -none Was patient admitted / discharged? @ -67 male to the emergency department for evaluation of severe vertigo, vertiginous symptoms from spinning lightheadedness and weakness not feeling well. Symptoms are improved here in the ER is able to ambulate can be discharged home Discharge Undiagnosed new problem with uncertain prognosis? @ -no Drug Therapy requiring intensive monitoring for toxicity (Heparin, Nitro, Insulin, Cardizem)? @ -no Were any procedures done? @ -no Diagnosis/symptom? @ -Vertigo Acute, or Chronic, or Acute on Chronic? @ -no Uncomplicated (without systemic symptoms) or Complicated (systemic symptoms)? @ -uncomplicated Side effects of treatment? @ -no Exacerbation, Progression, or Severe Exacerbation] @ -no Poses a threat to life or bodily function? @ -yes secondary to CVA with pain swelling Reevaluation #5: Differential Headache: Migraine, tension, cluster, carbon monoxide, central venous thrombosis, pension karma temporal arteritis, acute closure glaucoma, intercranial hemorrhage, mastoiditis, sinusitis, head injury, this is not meant to be an all-inclusive list. Differential Altered Mental Status: Hypoglycemia, DKA, hypercapnia, ETOH, overdose, CO poisoning, trauma, myxedema coma, HTN encephalopathy, infection, encephalitis, psychosis, intercranial hemorrhage, hepatic encephalopathy, meningitis, CVA, this is not meant to be an all-inclusive list EKG Findings - EKG Comments: EKG Findings:: EKG shows rate 55 TN 200 QRS 129 QTc 437 - EKG Results: EKG: interpreted by [facility] Medical Decision Making - Medical Decision Making 67 male to the emergency department with peripheral vertigo BPPV lately, patient feeling improved here in the ER able to ambulate without ataxia and can be discharged home - Lab Data Result diagrams: 02/10/23 12:52 02/10/23 12:52 Lab Results 02/10/23 02/10/23 02/10/23 Range/Units 12:52 12:52 12:52 WBC 5.7 (3.8-10.6) k/uL RBC 5.19 (4.30-5.90) m/uL Hgb 16.1 (13.0-17.5) gm/dL Hct 47.5 (39.0-53.0) % MCV 91.6 (80.0-100.0) fL MCH 31.0 (25.0-35.0) pg MCHC 33.9 (31.0-37.0) g/dL RDW 13.2 (11.5-15.5) % Plt Count 187 (150-450) k/uL MPV 7.5 Neutrophils % 64 % Lymphocytes % 21 % Monocytes % 7 % Eosinophils % 6 % Basophils % 1 % Neutrophils # 3.6 (1.3-7.7) k/uL Lymphocytes # 1.2 (1.0-4.8) k/uL Monocytes # 0.4 (0-1.0) k/uL Eosinophils # 0.3 (0-0.7) k/uL Basophils # 0.1 (0-0.2) k/uL PT 10.5 (9.0-12.0) sec INR 1.0 (<1.2) APTT 24.2 (22.0-30.0) sec Sodium 136 L (137-145) mmol/L Potassium 3.5 (3.5-5.1) mmol/L Chloride 99 (98-107) mmol/L Carbon Dioxide 27 (22-30) mmol/L Anion Gap 10 mmol/L BUN 21 H (9-20) mg/dL Creatinine 0.72 (0.66-1.25) mg/dL Est GFR (CKD-EPI)AfAm >90 (>60 ml/min/1.73 sqM) Est GFR (CKD-EPI)NonAf >90 (>60 ml/min/1.73 sqM) Glucose 114 H (74-99) mg/dL Calcium 9.1 (8.4-10.2) mg/dL Phosphorus 3.7 (2.5-4.5) mg/dL Magnesium 1.8 (1.6-2.3) mg/dL Total Bilirubin 1.1 (0.2-1.3) mg/dL AST 42 (17-59) U/L ALT 32 (4-49) U/L Alkaline Phosphatase 73 (38-126) U/L Troponin I (0.000-0.034) ng/mL Total Protein 6.8 (6.3-8.2) g/dL Albumin 4.0 (3.5-5.0) g/dL TSH 1.670 (0.465-4.680) mIU/L 02/10/23 Range/Units 12:52 WBC (3.8-10.6) k/uL RBC (4.30-5.90) m/uL Hgb (13.0-17.5) gm/dL Hct (39.0-53.0) % MCV (80.0-100.0) fL MCH (25.0-35.0) pg MCHC (31.0-37.0) g/dL RDW (11.5-15.5) % Plt Count (150-450) k/uL MPV Neutrophils % % Lymphocytes % % Monocytes % % Eosinophils % % Basophils % % Neutrophils # (1.3-7.7) k/uL Lymphocytes # (1.0-4.8) k/uL Monocytes # (0-1.0) k/uL Eosinophils # (0-0.7) k/uL Basophils # (0-0.2) k/uL PT (9.0-12.0) sec INR (<1.2) APTT (22.0-30.0) sec Sodium (137-145) mmol/L Potassium (3.5-5.1) mmol/L Chloride (98-107) mmol/L Carbon Dioxide (22-30) mmol/L Anion Gap mmol/L BUN (9-20) mg/dL Creatinine (0.66-1.25) mg/dL Est GFR (CKD-EPI)AfAm (>60 ml/min/1.73 sqM) Est GFR (CKD-EPI)NonAf (>60 ml/min/1.73 sqM) Glucose (74-99) mg/dL Calcium (8.4-10.2) mg/dL Phosphorus (2.5-4.5) mg/dL Magnesium (1.6-2.3) mg/dL Total Bilirubin (0.2-1.3) mg/dL AST (17-59) U/L ALT (4-49) U/L Alkaline Phosphatase (38-126) U/L Troponin I <0.012 (0.000-0.034) ng/mL Total Protein (6.3-8.2) g/dL Albumin (3.5-5.0) g/dL TSH (0.465-4.680) mIU/L - EKG Data -: EKG Interpreted by Ca - Radiology Data Radiology results: report reviewed (CT brain is negative for acute disease CTA negative chest x-rays negative for acute disease), image reviewed Disposition Clinical Impression: Vertigo, BPPV (benign paroxysmal positional vertigo) Disposition: HOME SELF-CARE Instructions (If sedation given, give patient instructions): Vertigo (ED), Dizziness (ED) Prescriptions: Meclizine [Antivert] 25 mg PO TID #15 tab Is patient prescribed a controlled substance at d/c from ED?: No Referrals: Trace Nicole MD [Primary Care Provider] - 1-2 days Time of Disposition: 14:15
--- NOTE | 2023-02-10 13:15 | XR ---
EXAMINATION TYPE: XR chest 2V DATE OF EXAM: 02/10/2023 COMPARISON: 03/27/2016 HISTORY: Shortness of breath TECHNIQUE: Frontal and lateral views of the chest are obtained. FINDINGS: Scattered senescent parenchymal changes noted. Hyperinflation compatible with COPD. No evidence for infiltrate. No evidence for atelectasis. Heart size is stable. Mediastinal structures are stable and grossly unremarkable. No evidence for hilar prominence. Degenerative changes dorsal spine. IMPRESSION: 1. No evidence for acute pulmonary disease.
[2023-02-10 13:37] LABS: Basophils # (A) 0.1 k/uL (0-0.2); Basophils % (A) 1 %; Eosinophils # (A) 0.3 k/uL (0-0.7); Eosinophils % (A) 6 %; HCT 47.5 % (39.0-53.0); HGB 16.1 gm/dL (13.0-17.5); Lymphocytes # (A) 1.2 k/uL (1.0-4.8); Lymphocytes % (A) 21 %; MCHC 33.9 g/dL (31.0-37.0); MCV 91.6 fL (80.0-100.0); Mean Platelet Volume 7.5; Monocytes # (A) 0.4 k/uL (0-1.0); Monocytes % (A) 7 %; Neutrophils # (A) 3.6 k/uL (1.3-7.7); Neutrophils % (A) 64 %; Platelet Count 187 k/uL (150-450); RBC 5.19 m/uL (4.30-5.90); RDW 13.2 % (11.5-15.5); WBC 5.7 k/uL (3.8-10.6)
[2023-02-10 13:48] LABS: ALT 32 U/L (4-49); African American GFR (CKD) >90 (>60 ml/min/1.73 sqM); Anion Gap 10 mmol/L; Blood Urea Nitrogen 21 mg/dL (9-20); Calcium 9.1 mg/dL (8.4-10.2); Carbon Dioxide 27 mmol/L (22-30); Chloride 99 mmol/L (98-107); Glucose 114 mg/dL (74-99); Non-African American GFR(CKD) >90 (>60 ml/min/1.73 sqM); Sodium 136 mmol/L (137-145); Total Bilirubin 1.1 mg/dL (0.2-1.3); Total Protein 6.8 g/dL (6.3-8.2)
[2023-02-10 13:51] LABS: Partial Thromboplastin Time 24.2 sec (22.0-30.0); Prothrombin Time 10.5 sec (9.0-12.0)
[2023-02-10 13:54] LABS: Phosphorus 3.7 mg/dL (2.5-4.5); Potassium 3.5 mmol/L (3.5-5.1)
[2023-02-10 13:55] LABS: AST 42 U/L (17-59); Alkaline Phosphatase 73 U/L (38-126); Magnesium 1.8 mg/dL (1.6-2.3)
[2023-02-10] MEDS ORDERED: ONDANSETRON 4 MG/2 ML VIAL IVP STA (13:56)
[2023-02-10] MEDS ORDERED: MECLIZINE 12.5 MG TAB PO STA (13:56)
[2023-02-10] MEDS ORDERED: diphenhydrAMINE 50 MG/ML 1 ML VIAL IVP STA (13:56)
[2023-02-10] MEDS ORDERED: ONDANSETRON 4 MG ODT STARTER PACK 2 TAB BTL PO STA (14:26)
--- NOTE | 2023-02-10 14:32 | CT ---
EXAMINATION TYPE: CT brain wo con DATE OF EXAM: 02/10/2023 COMPARISON: None HISTORY: Vertigo CT DLP: 1143 mGycm Automated exposure control for dose reduction was used. FINDINGS: Ventricular system is midline. There is no acute hemorrhage or mass effect. Mild generalized degenera tive change. Calvarium intact. Osseous structures intact. Changes of mild chronic sinusitis. Orbits are symmetric. As a focal nodula r prominence of the tip of the basilar artery measuring 5 mm. IMPRESSION: 1. NO ACUTE HEMORRHAGE OR MASS EFFECT. 2. 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 CTA [employer] [facility] [place] RECOMMENDED.
--- NOTE | 2023-02-10 15:20 | CT ---
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 Contrast CTA of the [place] was performed 3-D reconstruction imaging obtained at a separate workstation. Vertebrobasilar system as well as intracranial portions of the internal carotid arterie s and their major tributaries are patent. Mild basilar ectasia without aneurysm. I do not see evidenc e for sizable aneurysm or vascular malformation. Please note MRI provides greater sensitivity and sp ecificity. Visualized brain appears grossly unremarkable. IMPRESSION: No evidence for sizable aneurysm or vascular malformation.
== END 2023-02-10 16:19 | disposition home or self-care (01) ==
LOC: EC 12:31
DX: H81.10 Benign paroxysmal vertigo, unspecified ear (principal); I10 Essential (primary) hypertension; Z79.899 Other long term (current) drug therapy
CPT/HCPCS: 36415; 93005; 80053; 83735; 84100; 84443; 84484; 85025; 85610; 85730; 71046; 70496; 70450; 99284; 96374; 96375; J1200; J2405; S0119; Q9967

== ENCOUNTER 2025-01-12 12:26 | Emergency (ER) | payer MEDICARE, BC ==
--- NOTE | 2025-01-12 12:44 | ED ---
Fall HPI - General Chief Complaint: Fall Stated Complaint: Fell off ladder head lac no thinners Time Seen by Provider: 01/12/25 12:34 Source: patient Mode of arrival: ambulatory - History of Present Illness Initial Comments: 69-year-old male presenting with chief complaint of head injury. Patient fell off of the second step of a ladder forward hitting his head on a beam and then the ground. No loss of consciousness and no blood thinners. Patient does have a superficial laceration to the forehead. No nausea or vomiting. No other injuries. No dizziness. No vision or hearing changes. No numbness tingling or weakness. Patient denies any other complaints. Does not know when his last tetanus shot was. - Related Data Home Medications Medication Instructions Recorded Confirmed Bisoprolol-Hctz 10-6.25 mg [Ziac 1 tab PO QAM 03/27/16 12/01/21 10-6.25 MG] Chlorthalidone [Hygroton] 25 mg PO DAILY 03/27/16 12/01/21 Potassium Chloride ER [K-Dur 10] 10 meq PO BID 10/15/19 12/01/21 Mv-Min/Folic/K1/Lycopen/Lutein 1 each PO DAILY 11/29/21 12/01/21 [Centrum Silver Men Tablet] Tamsulosin [Flomax] 0.2 mg PO DAILY 11/29/21 12/01/21 Previous Rx's Medication Instructions Recorded Acetaminophen Tab [Tylenol] 1,000 mg PO Q6HR PRN #30 tablet 10/17/19 Ibuprofen 800 mg PO Q8HR PRN #30 tablet 10/17/19 Meclizine [Antivert] 25 mg PO TID #15 tab 02/10/23 Allergies Allergy/AdvReac Type Severity Reaction Status Date / Time No Known Allergies Allergy Verified 01/12/25 12:30 Review of Systems ROS Statement: Those systems with pertinent positive or pertinent negative responses have been documented in the HPI. ROS Other: All systems not noted in ROS Statement are negative. Past Medical History Past Medical History: Hypertension, Prostate Disorder Additional Past Medical History / Comment(s): diverticulitis, History of Any Multi-Drug Resistant Organisms: None Reported Past Surgical History: Cholecystectomy, Hernia Repair, Orthopedic Surgery Additional Past Surgical History / Comment(s): BILAT RAMYA, COLONOSCOPY, HERNIA X 2 Past Anesthesia/Blood Transfusion Reactions: No Reported Reaction Past Psychological History: No Psychological Hx Reported Smoking Status: Never smoker Past Alcohol Use History: None Reported Past Drug Use History: None Reported - Past Family History Mother Family Medical History: Cancer Additional Family Medical History / Comment(s): Breast Brother(s) Family Medical History: Diabetes Mellitus General Exam Limitations: no limitations General appearance: alert, in no apparent distress Head exam: Present: normocephalic Expanded Head exam: Present: laceration (2 and half centimeter laceration to the forehead) Eye exam: Present: normal appearance, PERRL, EOMI. Absent: periorbital swelling Neck exam: Present: normal inspection. Absent: meningismus Respiratory exam: Absent: respiratory distress Cardiovascular Exam: Present: regular rate Extremities exam: Present: normal inspection, full ROM Neurological exam: Present: alert, oriented X3 Expanded Eye Response: (4) open spontaneously Motor Response: (6) obeys commands Verbal Response: (5) oriented [place] Total: 15 Psychiatric exam: Present: normal affect, normal mood Course Vital Signs 01/12/25 01/12/25 12:29 14:59 Temperature 98 F 98.9 F Pulse Rate 54 L 57 L Respiratory 20 16 Rate Blood Pressure 128/78 117/79 O2 Sat by Pulse 99 97 Oximetry Procedures - Laceration Laceration #1 Consent Obtained: verbal consent Indication: laceration Site: face Size (cm): 2 Description: linear Depth: simple, single layer Type of Sutures: other (Dermabond) Patient Tolerated Procedure: well Medical Decision Making - Medical Decision Making Was pt. sent in by a medical professional or institution (, PA, NATIONAL SALES, urgent care, hospital, or fdc...) When possible be specific @ -No Did you speak to anyone other than the patient for history (EMS, parent, family, police, friend...)? What history was obtained from this source @ -No Did you review nursing and triage notes (agree or disagree)? Why? @ -I reviewed and agree with nursing and triage notes Were old charts reviewed (outside hosp., previous admission, EMS record, old EKG, old radiological studies, urgent care reports/EKG's, fdc records)? Report findings @ -No old charts were reviewed Differential Diagnosis (chest pain, altered mental status, abdominal pain women, abdominal pain men, vaginal bleeding, weakness, fever, dyspnea, syncope, headache, dizziness, GI bleed, back pain, seizure, CVA, palpatations, mental health, musculoskeletal)? @ -Differential includes uncomplicated head injury, concussion, fracture, hemorrhage, not an all-inclusive list EKG interpreted by me (3pts min.). @ -As above X-rays interpreted by me (1pt min.). @ -None done CT interpreted by me (1pt min.). @ -CT negative for acute intracranial process or cervical spine fracture. U/S interpreted by me (1pt. min.). @ -None done What testing was considered but not performed or refused? (CT, X-rays, U/S, labs)? Why? @ -None What meds were considered but not given or refused? Why? @ -None Did you discuss the management of the patient with other professionals (professionals i.e. , PA, NATIONAL SALES, lab, RT, psych nurse, social economist, cryolite recovery operator, teacher, traffic police officer, machine adjuster leader case trim)? Give summary @ -No Was smoking cessation discussed for >3mins.? @ -No Was critical care preformed (if so, how long)? @ -No Were there social determinants of health that impacted care today? How? (Andrade elessness, low income, unemployed, alcoholism, drug addiction, transportation, low edu. Level, literacy, decrease access to med. care, nursing home, rehab)? @ -No Was there de-escalation of care discussed even if they declined (Discuss DNR or withdrawal of care, Hospice)? DNR status @ -No What co-morbidities impacted this encounter? (DM, HTN, Smoking, COPD, CAD, Cancer, CVA, ARF, Chemo, Hep., AIDS, mental health diagnosis, sleep apnea, morbid obesity)? @ -None Was patient admitted / discharged? Hospital course, mention meds given and route, prescriptions, significant lab abnormalities, going to OR and other pertinent info. @ -69-year-old male presenting with chief complaint of head injury. Patient fell off of the second step of a ladder. No loss of consciousness or blood thinners. He does have a laceration to the forehead. CT is negative for acute intracranial process or cervical spine fracture. Tetanus is updated. Laceration is repaired using Dermabond. Patient is educated on wound care and signs of infection as well as alarm symptoms after head injury that should prompt reevaluation. Follow-up with PCP. Report back to ER with any new or worsening symptoms. Discussed return parameters and answered all questions. Patient conveyed verbal understanding and agreed to the plan. I discussed this case in detail with my attending Dr. Rascon Undiagnosed new problem with uncertain prognosis? @ -No Drug Therapy requiring intensive monitoring for toxicity (Heparin, Nitro, Insulin, Cardizem)? @ -No Were any procedures done? @ -Laceration repair Diagnosis/symptom? @ -Head injury, head laceration Acute, or Chronic, or Acute on Chronic? @ -Acute Uncomplicated (without systemic symptoms) or Complicated (systemic symptoms)? @ -Uncomplicated Side effects of treatment? @ -No Exacerbation, Progression, or Severe Exacerbation? @ -No Poses a threat to life or bodily function? How? (Chest pain, [place], ID, pneumonia, PE, COPD, DKA, ARF, appy, cholecystitis, CVA, Diverticulitis, Homicidal, Suicidal, threat to staff... and all critical care pts) @ -Unlikely Disposition Clinical Impression: Head injury, Laceration of head Disposition: HOME SELF-CARE Condition: Good Instructions (If sedation given, give patient instructions): Head Injury (ED), Skin Adhesive Care (ED), Head Laceration (ED) Additional Instructions: Follow-up with PCP. Report back to ER with any new or worsening symptoms, including but not limited to vomiting, confusion, difficulty arousing from sleep. Monitor for signs of infection, including but not limited to redness, swelling, pain, discharge, fever, chills. Keep the wound clean and dry and covered. Avoid fully submerging the wound. Clean with soap and water. Do not apply Neosporin or other ointment-based products as this will break down the skin adhesive. Is patient prescribed a controlled substance at d/c from ED?: No Referrals: Trace Nicole MD [Primary Care Provider] - 1-2 days Time of Disposition: 14:20
[2025-01-12] MEDS: TOPICAL SKIN ADHESIVE 1 EACH AMP TOPICAL ONE (13:00)
[2025-01-12] MEDS: DIPH,PERTUS(ACELL)TETVAC-LF 0.5 ML VIAL IM ONE (13:01)
--- NOTE | 2025-01-12 14:07 | CT ---
EXAMINATION TYPE: CT brain cspine wo con DATE OF EXAM: 01/12/2025 COMPARISON: CT brain February 10, 2023 CLINICAL INDICATION: Male, 69 years old with history of head injury, laceration for forehead, neck pa in and headache. TECHNIQUE: CT scan of the head and cervical spine are performed without contrast. CT DLP: 1551 mGycm. Automated Exposure Control for Dose Reduction was Utilized. FINDINGS: There is no acute intracranial hemorrhage or midline shift identified. Mild ventricular a nd sulcal prominence is seen. Hope-white matter differentiation is maintained. The calvarium is intac t. The globes are intact and the visualized sinuses are clear. Cervical spine is visualized in its entirety from C1 through upper thoracic levels and demonstrates g rade 1 retrolisthesis C4 on C5 and C5 on C6 without evidence of acute fracture or dislocation. Preve rtebral soft tissue appears within normal limits. The C1-C2 articulation is within normal limits on the coronal images. Vertebral body heights are maintained. Rllg-[id number] disc space narrowing C3- C4 through C5-C6 levels is present. Posterior disc herniations efface the anterior thecal sac at C3-C 4 and C4-C5 levels. Axial images show some multilevel uncovertebral facet degenerative changes bilate rally. Somewhat small size thyroid gland is seen. Upper lungs are clear without pneumothorax. IMPRESSION: 1. There is no acute fracture or dislocation evident in the cervical spine. 2. No acute intracranial hemorrhage or midline shift is seen. [facility], , 01/12/2025 2:05 PM
[2025-01-12 15:00] VITALS: BP 117/79; PULSE 57; RESP 16; TEMP 98.9
== END 2025-01-12 15:00 | disposition home or self-care (01) ==
LOC: EC 12:26
DX: S09.90XA Unspecified injury of head, initial encounter (principal); S01.81XA Laceration without foreign body of other part of head, initial encounter; Z23 Encounter for immunization; W11.XXXA Fall on and from ladder, initial encounter
CPT/HCPCS: 12011; 70450; 72125; 90471; 90715; 99283

== ENCOUNTER 2025-03-20 10:07 | Day surgery (SDC) | payer MEDICARE, BC ==
[2025-03-19 13:53] VITALS: BMI 30.7
--- NOTE | 2025-03-20 07:44 | P.GSHP ---
History of Present Illness H&P Date: 03/20/25 CHIEF COMPLAINT: Dysphagia and colon screen HISTORY OF PRESENT ILLNESS: The patient is a 69-year-old male who presents with dysphagia, gastroesophageal reflux disease and need for colon screen. Upper and lower endoscopy were offered for further evaluation and management. PAST MEDICAL HISTORY: Please see list. PAST SURGICAL HISTORY: Please see list. MEDICATIONS: Please see list. ALLERGIES: Please see list. SOCIAL HISTORY: No illicit drug use FAMILY HISTORY: No reports of Crohn disease or ulcerative colitis. REVIEW OF ORGAN SYSTEMS: CONSTITUTIONAL: No reports of fevers or chills. GI: Denies any blood in stools or constipation. PHYSICAL EXAM: VITAL SIGNS: Stable GENERAL: Well-developed pleasant in no acute distress. HEENT: No scleral icterus. Extraocular movements grossly intact. Moist buccal mucosa. NECK: Supple without lymphadenopathy. CHEST: Unlabored respirations. Equal bilateral excursions. CARDIOVASCULAR: Regular rate and rhythm. Distal 2+ pulses. ABDOMEN: Soft, nondistended. MUSCULOSKELETAL: No clubbing, cyanosis, or edema. ASSESSMENT: 1. Dysphagia and gastroesophageal reflux disease 2. Colon screen. PLAN: 1. Recommend proceeding with an upper and lower endoscopy Past Medical History Past Medical History: Hypertension, Prostate Disorder Additional Past Medical History / Comment(s): diverticulitis, BPH History of Any Multi-Drug Resistant Organisms: None Reported Past Surgical History: Cholecystectomy, Hernia Repair, Joint Replacement Additional Past Surgical History / Comment(s): BILAT RAMYA, COLONOSCOPY, HERNIA X 2 Past Anesthesia/Blood Transfusion Reactions: No Reported Reaction Past Psychological History: No Psychological Hx Reported Smoking Status: Never smoker Past Alcohol Use History: None Reported Past Drug Use History: None Reported - Past Family History Mother Family Medical History: Cancer Additional Family Medical History / Comment(s): Breast Brother(s) Family Medical History: Diabetes Mellitus Medications and Allergies Home Medications Medication Instructions Recorded Confirmed Type Bisoprolol-Hctz 10-6.25 mg [Ziac 1 tab PO QAM 03/27/16 03/19/25 History 10-6.25 MG] Chlorthalidone [Hygroton] 25 mg PO DAILY 03/27/16 03/19/25 History Potassium Chloride ER [K-Dur 10] 10 meq PO BID 10/15/19 03/19/25 History Tamsulosin [Flomax] 0.4 mg PO DAILY 11/29/21 03/19/25 History Ergocalciferol [Vitamin D2 (1250 1,250 mcg PO WEEKLY 03/19/25 03/19/25 History Mcg = 47478 Iu)] Allergies Allergy/AdvReac Type Severity Reaction Status Date / Time No Known Allergies Allergy Verified 03/19/25 13:43
[2025-03-20 10:33] VITALS: TEMP 96.6
[2025-03-20] MEDS: IV FLUID CONTINUATION 1,000 ML IV ONE ×2 (10:40→11:37)
[2025-03-20] MEDS: LACTATED RINGERS 1,000 ML IV SCH (10:41)
[2025-03-20] MEDS ORDERED: LIDOCAINE 1% INJ 10MG/ML (20 ML MDV) ONE (11:05)
[2025-03-20] MEDS ORDERED: PROPOFOL 10 MG/ML 20 ML VIAL IV ONE (11:05)
--- NOTE | 2025-03-20 11:21 | P.PCN ---
Date of Procedure: 03/20/25 Description of Procedure: PREOPERATIVE DIAGNOSIS: Gastroesophageal reflux disease. Dysphagia POSTOPERATIVE DIAGNOSIS: Gastroesophageal reflux disease with erosive esophagitis Gastritis. OPERATION: Esophagogastroduodenoscopy with cold forceps biopsies along esophagus, antrum and duodenum SURGEON: Kristen Arias MD ANESTHESIA: MAC. INDICATIONS: The patient is a 69-year-old male who presents with dysphagia and reflux disease. Benefits and risks of the procedure were described. Informed consent was obtained. DESCRIPTION: The patient was brought into the endoscopy suite and laid in the left lateral decubitus position. An Olympus gastroscope was passed along the posterior oropharynx down to the distal esophagus where the squamocolumnar junction was encountered at 38 cm from the incisors. The stomach was entered and no bile reflux was found. Additional findings are listed below. Biopsies with cold forceps were obtained of the antrum. The first through third portion of the duodenum was examined. Retroflexion of the scope confirmed Hill grade 2 lower esophageal valve. The squamocolumnar junction demonstrated LA grade B erosive esophagitis. The stomach was desufflated. The patient tolerated the procedure well. FINDINGS: Squamocolumnar junction 38 cm from the incisors. Diaphragmatic hiatus at 38 cm. Hill grade 2 lower esophageal valve. LA grade B erosive esophagitis. Biopsies obtained Biopsies obtained of the duodenum. Chronic gastritis with biopsies obtained. RECOMMENDATIONS: Upper endoscopy as needed.
--- NOTE | 2025-03-20 11:43 | P.PCN ---
Date of Procedure: 03/20/25 Description of Procedure: PREOPERATIVE DIAGNOSIS: Personal history of colon polyps Colonoscopy screening POSTOPERATIVE DIAGNOSIS: Acute sigmoid diverticulitis Tubular adenoma descending colon Tubular adenoma ascending colon Sigmoid diverticulosis Internal hemorrhoids, grade 2 OPERATION: Colonoscopy to the ileocecal valve and appendiceal orifice, cecum Colonoscopy with hot snare polypectomy SURGEON: Kristen Arias MD. ANESTHESIA: MAC. INDICATIONS: The patient is an 69-year-old male who personal history of colon polyps. Last colonoscopy 5 years. Benefits and risks were described and informed consent was obtained. DESCRIPTION OF PROCEDURE: The patient had undergone Suprep. The patient had been brought into the operating room and laid in the left lateral decubitus position. After adequate intravenous sedation, the rectum was examined with 2% lidocaine jelly. The prostate was unremarkable. External hemorrhoids were encountered. The rectal tone was within normal limits. No lesions were palpated in the rectal vault. An Olympus colonoscope was advanced until the cecum, ileocecal valve and appendiceal orifice were clearly viewed. The prep was fair. Acute diverticulitis with sigmoid diverticulosis was encountered. Colonic polyps were found and removed. No evidence of focal colitis was found. Retroflexion of the scope demonstrated grade 2 internal hemorrhoids without active bleeding or inflammation. The colon was desufflated. The patient had tolerated the procedure well. Withdrawal time was over 6 minutes. FINDINGS: Aronchick preparation quality scale 3+ (1-5) Internal hemorrhoids, grade 2 External hemorrhoids, grade 2. No arteriovenous malformations. Sigmoid diverticulosis with acute sigmoid diverticulitis with purulence Removal of 2 polyps: - Snare polypectomy descending colon, 15 mm tubular adenoma - Snare polypectomy ascending colon, 10 mm tubulovillous adenoma No focal colitis. RECOMMENDATIONS: Repeat colonoscopy 2 years, 2026 Will need 2 to 3-day colon prep due to moderate stool Augmentin 875 mg twice daily prescribed for acute diverticulitis for 10 days Plan - Discharge Summary Discharge Rx Participant: No New Discharge Prescriptions: New Amoxic-Pot Clav 875-125Mg [Augmentin 875-125] 1 tab PO BID 1 Days #20 tab Continue Chlorthalidone [Hygroton] 25 mg PO DAILY Bisoprolol-Hctz 10-6.25 mg [Ziac 10-6.25 MG] 1 tab PO QAM Potassium Chloride ER [K-Dur 10] 10 meq PO BID Tamsulosin [Flomax] 0.4 mg PO DAILY Ergocalciferol [Vitamin D2 (1250 Mcg = 71190 Iu)] 1,250 mcg PO WEEKLY Discharge Medication List Bisoprolol-Hctz 10-6.25 mg [Ziac 10-6.25 MG] 1 tab PO QAM 03/27/16 [History] Chlorthalidone [Hygroton] 25 mg PO DAILY 03/27/16 [History] Potassium Chloride ER [K-Dur 10] 10 meq PO BID 10/15/19 [History] Tamsulosin [Flomax] 0.4 mg PO DAILY 11/29/21 [History] Ergocalciferol [Vitamin D2 (1250 Mcg = 99983 Iu)] 1,250 mcg PO WEEKLY 03/19/25 [History] Amoxic-Pot Clav 875-125Mg [Augmentin 875-125] 1 tab PO BID 1 Days #20 tab 03/20/25 [Rx] Follow up Appointment(s)/Referral(s): Kristen Arias MD [STAFF PHYSICIAN] - 04/01/25 11:00 am Patient Instructions/Handouts: Diverticulitis (ED), Colorectal Polyps (GEN) Activity/Diet/Wound Care/Special Instructions: Start antibiotics for diverticulitis Discharge Disposition: HOME SELF-CARE
[2025-03-20 12:03] VITALS: BP 110/78; PULSE 54; RESP 14
== END 2025-03-20 12:43 | disposition home or self-care (01) ==
LOC: ORWHC2ENDO 10:07
PROVIDERS: ATTEND Surgery Plastic and Reconstructive Surgery
DX: Z12.11 Encounter for screening for malignant neoplasm of colon (principal); D12.4 Benign neoplasm of descending colon; D12.2 Benign neoplasm of ascending colon; D12.3 Benign neoplasm of transverse colon; K57.32 Diverticulitis of large intestine without perforation or abscess without bleeding; K64.1 Second degree hemorrhoids; K64.4 Residual hemorrhoidal skin tags; K29.50 Unspecified chronic gastritis without bleeding; K21.00 Gastro-esophageal reflux disease with esophagitis, without bleeding; I10 Essential (primary) hypertension; N40.0 Benign prostatic hyperplasia without lower urinary tract symptoms; Z79.899 Other long term (current) drug therapy; Z86.0100 Personal history of colon polyps, unspecified
CPT/HCPCS: 88305; 45385; 43239; J2003; J2704